=== PATIENT | female | born 1995 | race Caucasian/White ===

== ENCOUNTER 2018-10-16 17:34 | Emergency (ER) | payer MEDICAID ==
[~2018-10-16] VITALS: Ht 180.3 cm; Wt 200.7 kg
[2018-10-16 18:05] VITALS: BP 155/92; Ht 180.3 cm; Wt 200.7 kg
== END 2018-10-16 18:38 | disposition home or self-care (01) ==
LOC: ED 17:34
DX: J03.90 Acute tonsillitis, unspecified (principal); F41.9 Anxiety disorder, unspecified

== ENCOUNTER 2018-12-23 00:58 | Emergency (ER) | payer OTHER ==
[2018-12-23 01:06] VITALS: Ht 180.3 cm
[2018-12-23 01:57] LABS: BASOPHIL % 0.4 % (0-2); PLATELET COUNT 268 x10^3mcL (130-400); RED CELL DISTRIBUTION WIDTH 13.5 % (11.5-14.5)
[2018-12-23 02:06] LABS: CALCIUM 8.6 mg/dL (8.5-10.1); CARBON DIOXIDE 30.8 mmol/L (21-32); CHLORIDE SERUM 100 mmol/L (98-107); GFR1 > 60 mL/min; GLUCOSE SERUM 132 mg/dL (74-106); POTASSIUM SERUM 3.4 mmol/L (3.5-5.1); SODIUM SERUM 138 mmol/L (136-145)
[2018-12-23 02:11] LABS: ALBUMIN 3.8 g/dL (3.4-5.0); ALKALINE PHOSPHATASE 60 U/L (46-116); ALT/SGPT 65 U/L (14-59); AST/SGOT 28 U/L (15-37); BILIRUBIN TOTAL 0.65 mg/dL (0.20-1.00); TOTAL PROTEIN, SERUM 8.2 g/dL (6.4-8.2)
[2018-12-23 03:32] VITALS: BP 127/78
[2018-12-24] MEDS ORDERED: SPIRONOLACTONE100 MG PO (14:31)
[2018-12-24] MEDS ORDERED: CLONAZEPAM1 MG PO (14:32)
[2018-12-24] MEDS ORDERED: FLUOXETINE60 MG PO (14:33)
[2018-12-24] MEDS ORDERED: HYD50T PO (14:35)
== END 2018-12-23 03:25 | disposition home or self-care (01) ==
LOC: ED 00:58
PROVIDERS: Emergency Medicine
DX: N13.2 Hydronephrosis with renal and ureteral calculous obstruction (principal); F41.9 Anxiety disorder, unspecified; F32.9 Major depressive disorder, single episode, unspecified; E11.9 Type 2 diabetes mellitus without complications
CPT/HCPCS: J1885; J2405; J7030

== ENCOUNTER 2018-12-24 10:48 | Inpatient (IN) | payer OTHER ==
[~2018-12-24] VITALS: Ht 180.3 cm; Wt 190.5 kg
[2018-12-24 10:50] VITALS: Ht 180.3 cm; Wt 190.5 kg
--- NOTE | 2018-12-24 10:58 | NUR ---
PT AWAKE AND ALERT. PT BIBA FOR SOB AND HIGH FEVER. PER PARAMEDICS, PT'S LUNG SOUNDS WERE CLEAR ON SCENE BUT PT'S SPO2 WAS IN THE LOW 90S. PT WAS PLACED ON 2L VIA NC AND SPO2 WENT UP TO 97%. PT DENIES ANY C/P AT THIS TIME. PT SKIN IS HOT TO TOUCH. PT DOES NOT APPEAR TO BE IN RESPIRATORY DISTRESS. RESP E/U. PT ON FULL CM. PT IS TACHYCARDIC. PT HAS HX OF DM AND HTN. PT IS ALSO TRANSGENDERED MALE TO FEMALE BUT STILL HAS MALE GENITALS. CALL LIGHT WITHIN REACH. PT AWAITING MSE IN POSITION OF COMFORT.
--- NOTE | 2018-12-24 11:09 | NUR ---
PT PROVIDED URINAL FOR URINE SAMPLE COLLECTION
--- NOTE | 2018-12-24 11:29 | NUR ---
SEPSIS SHEET STARTED. PT QUALIFIES FOR SIRS AT THIS TIME. BOLUS OF NS INITIATED.
--- NOTE | 2018-12-24 11:31 | NUR ---
FAMILY AT BEDSIDE
[2018-12-24 11:36] LABS: PLATELET COUNT 215 x10^3mcL (130-400); RED CELL DISTRIBUTION WIDTH 13.4 % (11.5-14.5)
[2018-12-24 11:43] LABS: CALCIUM 8.5 mg/dL (8.5-10.1); CHLORIDE SERUM 96 mmol/L (98-107); CREATININE SERUM 0.9 mg/dL (0.6-1.0); GFR1 > 60 mL/min; GLUCOSE SERUM 160 mg/dL (74-106); POTASSIUM SERUM 3.3 mmol/L (3.5-5.1); SODIUM SERUM 131 mmol/L (136-145)
[2018-12-24 11:48] LABS: ALBUMIN 3.3 g/dL (3.4-5.0); ALKALINE PHOSPHATASE 57 U/L (46-116); ALT/SGPT 44 U/L (14-59); AST/SGOT 19 U/L (15-37); BILIRUBIN TOTAL 0.85 mg/dL (0.20-1.00); TOTAL PROTEIN, SERUM 7.6 g/dL (6.4-8.2)
--- NOTE | 2018-12-24 12:24 | NUR ---
LITER BOLUS INFUSED. BP 125/69, HR 134, R 28. SKINS WARM & DRY W/ IMMEDIATE CAP REFILL. PT PT ANXIETY, WANTING TO TAKE OWN KLONAZPEAM.
--- NOTE | 2018-12-24 12:35 | NUR ---
PT TOOK OWN KLONPIN 1 MG FOR ANXIETY & OWN MOTRIN 600 MG FOR HEADACHE W/ OK OF DR. SUAREZ.
[2018-12-24 12:54] LABS: BAND NEUTROPHIL 9 % (0-10); BASOPHIL 0 % (0-2); MONOCYTE 13 % (0-7); PLATELET MORPHOLOGY PLATELETS NORMAL; SEGMENTED NEUTROPHILS 71 % (37-75)
[2018-12-24 13:07] LABS: microscopic required? YES; urine erythrocyte 2+ (NEGATIVE)
--- NOTE | 2018-12-24 13:22 | NUR ---
ANTIBIOTIC INITIATED AT THIS TIME.
[2018-12-24] MEDS ORDERED: SPIRONOLACTONE100 MG PO (14:31)
[2018-12-24] MEDS ORDERED: CLONAZEPAM1 MG PO (14:32)
[2018-12-24] MEDS ORDERED: FLUOXETINE60 MG PO (14:33)
[2018-12-24] MEDS ORDERED: HYD50T PO (14:35)
--- NOTE | 2018-12-24 15:34 | NUR ---
RECEIVED PT FROM E/D [employer]IA [employer], ACCOMPANIED BY RN AND TRANSPORTER. PT A/A/O X 4, ANXIOUS R/T HOSPITAL STAY BUT COOPERATIVE TO CARE AT THIS TIME, HAS H/A PRESSURE 7/10 EXACERBATED BY MOVEMENT, RELIEVED BY REST AND MEDICATION. PT WITH DIZZINESS, HR 123, DENIES CHEST PAIN OR DISCOMFORT AT THIS TIME, ABLE TO AMBULATE WITH SLOW, STEADY GAIT; FALL RISK PROTOCOL IN PLACE. LUNGS CTAB, CHEST RISING EVENLY, 2LNC, 97%, NO ACUTE RESPIRATORY DISTRESS NOTED. MORBIDLY OBESE; ABD SOFT, DISTENDED, NORMOACTIVE BOWEL SOUNDS X 4 QUADS, LAST BM 12/24/18, FORMED. TRANS M2F, MALE GENITALIA INTACT; VOIDS FREELY, URINAL BY BEDSIDE, DENIES DYSURIA. ON BIG BOY BED. IV SITE LFA 20G, CDI. ORIENTED PT TO ROOM, BED CONTROLS, CALL LIGHT SYSTEM. SIDE RAILS UP X 2, BED IN LOW POSITION. WILL ENDORSE TO IVAN PARADA.
--- NOTE | 2018-12-24 15:40 | NUR ---
REPORT GIVEN BY ONELIA AT THIS TIME. PATIENT RESTING COMFORTABLY IN BED. NO APPARENT DISTRESS OR DISCOMFORT NOTED. BREATHING EVEN AND UNLABORED. NO RESPIRATORY DISTRESS NOTED. PATIENT ON 2L NC AND TOLERATING WELL. PATIENT DENIES CHEST PAIN AT THIS TIME BUT DOES COMPLAIN OF DIZZINESS. PATIENT IS TRANSGENDER M2F, MALE GENITALIA INTACT AND USES URINAL AT BEDSIDE. IV TO LEFT FOREARM PATENT AND INTACT. ALL QUESTIONS AND CONCERNS ADDRESSED. ALL NEEDS ATTENDED TO. ALL SAFETY PRECAUTIONS MAINTAINED. WILL CONTINUE TO MONITOR
[2018-12-24 16:10] VITALS: BP 115/53
--- NOTE | 2018-12-24 18:35 | NUR ---
PATIENT RESTING COMFORTABLY IN BED AT THIS TIME. NO APPARENT DISTRESS OR DISCOMFORT NOTED. 2L NC IN PLACE. PATIENT TOLERATING WELL. IV PATENT AND INTACT. ALL QUESTIONS AND CONCERNS ADDRESSED. SAFETY PRECAUTIONS MAINTAINED. ALL NEEDS ATTENDED TO. WILL ENDORSE ALL CARE TO CONSULTING SME NURSE
--- NOTE | 2018-12-24 18:45 | NUR ---
PAGED DR RODRIGEZ AT THIS TIME REGARDING PATIENT REQUEST FOR MEDICATION FOR DIARRHEA. AWAITING CALL BACK. WILL ENDORSE TO THEOLOGY TEACHER NURSE.
--- NOTE | 2018-12-24 19:09 | NUR ---
SPOKE TO DR RODRIGEZ AT THIS TIME. REPORTED TO DR RODRIGEZ PATIENT C/O DIARRHEA AT THIS TIME. PER DR RODRIGEZ COLLECT STOOL SAMPLE FOR C-DIFF. ORDERS NOTED AND CARRIED OUT.
--- NOTE | 2018-12-24 19:20 | NUR ---
REPORT RECIEVED FROM DAY SHIFT RN. PATIENT WAS SEEN AND IS RESTING COMFORTBALY IN BED. ON 2L NC. BREATHING EVEN AND UNLABORED. NO DISTRESS NOTED. DENIES CHEST PAIN. C/O HEADACHE, BUT STATES IT'S IMPROVING FROM EARLIER. C/O NAUSEA AND MILD DIZZINESS WELL. MED SURG PATIENT. IV TO THE LFA, 22G INFUSING WELL. PATENT AND INTACT. PATIENT IS ABLE TO MAKE NEEDS KNOWN. PATIENT STATES SHE STILL FEELS ANXIOUS, BUT NOT MUCH BEFORE. EDUCATED PATIENT THAT STOOL SAMPLE IS NEEDED FOR CDIFF CULTURE. PATIENT DENIES DYSURIA. COMFORT AND SAFETY MEASURES MAINTAINED. BED IS LOCKED AND IN THE LOWEST POSITION. SIDE RAILS UP X2. CALL LIGHT IS WITHIN REACH. WILL CONTINUE TO MONITOR.
--- NOTE | 2018-12-24 20:12 | NUR ---
PATTERN ASSEMBLER REPORTED TEMP IS 100F. COOLING MEASURES IMPLEMENTED TO FOREHEAD AND BILATERALLY AXILLA. WILL CONTINUE TO MONITOR AND REASSESS TEMP. NO DISTRESS NOTED. CALL LIGHT IS WITHIN REACH.
[2018-12-24 21:21] VITALS: BP 147/78
[2018-12-24 21:24] VITALS: BP 159/50
--- NOTE | 2018-12-24 21:30 | NUR ---
TEMP AT 99.7 AFTER COOLING MEASURES.
--- NOTE | 2018-12-24 23:24 | NUR ---
MANAGER FINE REPORTED IV IS LEAKING. IV CAME LOOSE. CATHETER INTACT. NEW IV INSERTED BY IVAN ROUSSEAU TO THE RFA, 22G. PATENT AND INTACT. NO REDNESS OR SWELLING NOTED. RESUMED LR INFUSING AND INFUSING WELL. PATENT AND INTACT. CALL LIGHT IS WITHIN REACH. PATIENT MADE COMFORTBALY IN BED. WILL CONTINUE TO MONITOR.
--- NOTE | 2018-12-25 01:11 | NUR ---
PATIENT IS HAVING TROUBLE SLEEPING AND IS REQUESTING SLEEPING PILL. PRN AMBIEN WAS ADMINISTERED PRESCRIBED. EDUCATED PATIENT TO BE CAREFUL IF SHE NEEDS TO GET UP. WILL CONTINUE TO MONITOR. CALL LIGHT IS WITHIN REACH. BREATHING EVEN. NO DISTRESS NOTED
--- NOTE | 2018-12-25 02:32 | NUR ---
ADVISOR [employer] FOUNDER REPORTED TEMP OF 103. PATIENT STATES THAT SHE FEELS LIKE SHE IS BURNING UP. PRN TYLENOL WAS ADMINISTERED PRESCRIBED. COOLING MEASURES IMPLEMENTED WELL ON FOREHEAD AND BILATERALLY AXILLAS. WILL CONTINUE TO MONITOR AND REASSESS TEMP.
--- NOTE | 2018-12-25 03:28 | NUR ---
TEMP 101 AFTER TYLENOL AND COOLING MEASURES. IMPLEMENTED COOLING MEASURES AGAIN AND WILL REASSESS. CALL LIGHT IS WITHIN REACH,
--- NOTE | 2018-12-25 04:30 | NUR ---
PATIENT'S TEMP IS NOW 98.6.
--- NOTE | 2018-12-25 05:20 | NUR ---
PATIENT SLEPT IN INTERVAL THROUGHOUT THE NIGHT. BREATHING EVEN ON 2L NC. NO ACUTE/SIGNIFICANT CHANGES NOTED. NO DISTRESS NOTED. NO C/O PAIN THROUGHOUT THE NIGHT. DENIES CHEST PAIN. IV TO THE RFA INFUSING LR WELL. PATENT AND INTACT. NO REDNESS OR SWELLING NOTED. EDUCATED PATIENT ON ALL MEDS. ALL NEEDS AND CONCERNS ADDRESSED. STOOL SAMPLE SENT TO LAB FOR C-DIFF CULTURE. COMFORT AND SAFETY MEASURES MAINTAINED. CALL LIGHT IS WITHIN REACH. WILL ENDORSE CARE TO DAY SHIFT RN.
[2018-12-25 05:43] VITALS: BP 94/51
[2018-12-25 06:32] LABS: PLATELET COUNT 189 x10^3mcL (130-400); RED CELL DISTRIBUTION WIDTH 13.8 % (11.5-14.5)
[2018-12-25 06:38] LABS: ALKALINE PHOSPHATASE 53 U/L (46-116); ALT/SGPT 30 U/L (14-59); AST/SGOT 15 U/L (15-37); BILIRUBIN TOTAL 0.8 mg/dL (0.20-1.00); CALCIUM 8.3 mg/dL (8.5-10.1); CARBON DIOXIDE 28.5 mmol/L (21-32); CHLORIDE SERUM 99 mmol/L (98-107); CREATININE SERUM 0.9 mg/dL (0.6-1.0); GFR1 > 60 mL/min; GLUCOSE SERUM 141 mg/dL (74-106); MAGNESIUM 1.6 mg/dL (1.8-2.4); PHOSPHOROUS 2.8 mg/dL (2.5-4.9); SODIUM SERUM 137 mmol/L (136-145); TOTAL PROTEIN, SERUM 7.1 g/dL (6.4-8.2)
[2018-12-25 06:49] LABS: ALBUMIN 2.7 g/dL (3.4-5.0); POTASSIUM SERUM 2.9 mmol/L (3.5-5.1)
--- NOTE | 2018-12-25 07:30 | NUR ---
A+OX4, NO RESPIRATORY DSITRESS NOTED, MEDSURG, PULSES MODERATE AND EQUAL ADINA, NO EDEMA NOTED, LUNG SOUNDS CTA, BOWEL SOUNDS ACTIVE, VOIDING FREELY, GENERALIZED WEAKNESS, SKIN INTACT, IV IN RFA WITH LR @ 80 ML/HR, SITE WNL, WBC 21.5, K 2.9, CA 8.3, MG 1.6.
[2018-12-25 09:22] VITALS: BP 157/100
--- NOTE | 2018-12-25 09:29 | NUR ---
PT COMPLAINING OF NAUSEA AND BACK PAIN, REQUESTING NORCO PO. ZOFRAN IVP AND NORCO PO GIVEN. NO RESPRIATORY DISTRESS NOTED. CALL LIGHT WITHIN REACH.
[2018-12-25 11:34] LABS: BAND NEUTROPHIL 5 % (0-10); BASOPHIL 0 % (0-2); MONOCYTE 10 % (0-7); SEGMENTED NEUTROPHILS 76 % (37-75)
[2018-12-25 11:35] LABS: PLATELET MORPHOLOGY PLATELETS DECREASED; rbc morphology (normal/abnorm) ABNORMAL (NORMAL)
--- NOTE | 2018-12-25 11:50 | NUR ---
PT RESTING IN BED, NO RESPIRATORY DSITRESS NOTED, COMPLAINING OF VÁZQUEZ, TYLENOL PO GIVEN. ASSISTED PT TO CALL MOTHER VIA TELEPHONE. CALL LIGHT WITHIN REACH.
--- NOTE | 2018-12-25 13:20 | NUR ---
PT RESTING IN BED, NO RESPIRATORY DISTRESS NOTED, CALL LIGHT WITHIN REACH.
--- NOTE | 2018-12-25 15:15 | NUR ---
PT COMPLAINING OF BACK PAIN AND VÁZQUEZ, REQUESTING NORCO PO, NORCO PO GIVEN, NO RESPIRATORY DSITRESS NOTED, CALL LIGHT WITHIN REACH.
[2018-12-25 16:28] VITALS: BP 122/67
--- NOTE | 2018-12-25 16:51 | NUR ---
DR FONTENOT TELEPHONE ORDERED TO ADMINISTER ADDITIONAL KLOR CON 40 MEQ PO PRN NOW.
--- NOTE | 2018-12-25 17:47 | NUR ---
PT COMPLAINING THAT SHE FEELS HOT, TEMP 100.7, TYLENOL PO GIVEN, COOLING MEASURES IN PLACE INCLUDING AC ON HIGH AND ICE ICE PACK ON FOREHEAD. MOTHER AT BEDSIDE. NO RESPRIATORY DSITRESS NOTED, CALL LIGHT WITHIN REACH.
--- NOTE | 2018-12-25 18:28 | NUR ---
TEMP RECHECKED AFTER TYLENOL PO AND COOLING MEASURES: 99.0. NO RESPRIATORY DSITRESS NOTED, CALL LIGHT WITHIN REACH, MOTHER AT BEDSIDE.
--- NOTE | 2018-12-25 19:12 | NUR ---
ENDORSED CARE TO ROBYN LOVE.
--- NOTE | 2018-12-25 19:38 | NUR ---
RECEIVED PT FROM DAY SHIFT RN. AAOX4 DENIES HEADACHE OR DIZZINESS. PT DENIES ANY CHEST PAIN. LUNG SOUNDS CTA ON RA AT THIS TIME. IV RFA PATENT AND INFUSING WELL. PT AMBULATORY. SKIN INTACT. FAMILY AT BEDSIDE. NO SIGNS OF ACUTE DISTRESS NOTED. CALL BUTTON WITHIN REACH. WILL CONTINUE TO MONITOR.
--- NOTE | 2018-12-25 20:42 | NUR ---
PT REPORTED HAVING PAIN, MEDICATED PER EMAR. WILL CONTINUE TO MONITOR.
[2018-12-25 21:14] VITALS: BP 130/62
--- NOTE | 2018-12-26 00:07 | NUR ---
PT RESTING, BREATHING EVEN AND UNLABORED WITH NO SIGNS OF DISTRESS NOTED. IV INFUSING WELL. WILL MONITOR.
--- NOTE | 2018-12-26 01:08 | NUR ---
PT REPORTED HAVING BACK PAIN, MEDICATED PER EMAR. WILL CONTINUE TO MONITOR.
--- NOTE | 2018-12-26 02:01 | NUR ---
PT RESTING, BREATHING EVEN AND UNLABORED, NO SOB NOTED. IV INFUSING WELL. NO SIGNS OF DISTRESS NOTED. WILL CONTINUE TO MONITOR.
--- NOTE | 2018-12-26 04:02 | NUR ---
ROUNDS MADE. PT RESTING, BREATHING EVEN AND UNLABORED, NO SOB NOTED. IV INFUSING WELL. NO SIGNS OF DISTRESS NOTED. WILL CONTINUE TO MONITOR.
[2018-12-26 05:52] VITALS: BP 99/48
--- NOTE | 2018-12-26 06:06 | NUR ---
PT SLEPT ON AND OFF THROUGHOUT THE NIGHT WITH NO SIGNS OF DISTRESS. BREATHING EVEN AND UNLABORED PT ON RA AND PLACED ON NC 2L/MIN NEEDED TO KEEP 02SAT ABOVE 94%. IV PATENT AND INFUSING WELL. PT REPORTED HAVING PAIN THROUGHOUT THE NIGHT, MEDICATED PER EMAR WITH RELIEF. PT USES URINAL AT BEDSIDE. CALL BUTTON WITHIN REACH. SAFETY PRECAUTIONS IN PLACE. WILL CONTINUE TO MONITOR AND ENDORSE CARE TO DAY SHIFT RN.
--- NOTE | 2018-12-26 07:15 | NUR ---
PT REPORTED HAVING A HEADACHE, MEDICATED PER EMAR. WILL MONITOR.
--- NOTE | 2018-12-26 07:30 | NUR ---
A+OX4, NO RESPIRATORY DISTRESS NOTED, COMPLAINING OF VÁZQUEZ, TYLENOL GIVEN BY PREVIOUS SHIFT, MEDSURG, PULSES MODERATE AND EQUAL ADINA, NO EDEMA NOTED, LUNG SOUNDS CTA, TOLERATING RA, 2L NC, BOWEL SOUNDS ACTIVE, VOIDING FREELY, AMBULATORY, SKIN INTACT, IV IN RFA WITH LR @ 80 ML/HR, SITE WNL.
--- NOTE | 2018-12-26 07:31 | NUR ---
PT RESTING, BREATHING EVEN AND UNLABORED NO SIGNS OF DISTRESS NOTED. IV INFUSIGN WELL. ENDORSED CARE TO DAY SHIFT RN.
[2018-12-26 09:21] LABS: ALBUMIN 2.6 g/dL (3.4-5.0); ALKALINE PHOSPHATASE 50 U/L (46-116); ALT/SGPT 28 U/L (14-59); AST/SGOT 14 U/L (15-37); BASOPHIL % 0.2 % (0-2); BILIRUBIN TOTAL 0.57 mg/dL (0.20-1.00); CALCIUM 8.3 mg/dL (8.5-10.1); CARBON DIOXIDE 31.1 mmol/L (21-32); CHLORIDE SERUM 97 mmol/L (98-107); CREATININE SERUM 0.8 mg/dL (0.6-1.0); GFR1 > 60 mL/min; GLUCOSE SERUM 137 mg/dL (74-106); PLATELET COUNT 198 x10^3mcL (130-400); POTASSIUM SERUM 3.5 mmol/L (3.5-5.1); RED CELL DISTRIBUTION WIDTH 13.6 % (11.5-14.5); SODIUM SERUM 134 mmol/L (136-145); TOTAL PROTEIN, SERUM 7.3 g/dL (6.4-8.2)
[2018-12-26 09:24] VITALS: BP 154/93
--- NOTE | 2018-12-26 10:34 | NUR ---
PT CONT TO COMPLAIN OF CONSTANT VÁZQUEZ AND PRESSURE IN HEAD. DR FONTENOT NOTIFIED AND STATED OKAY FOR PT TO HAVE OXYCODONE FOR VÁZQUEZ. OXYCODONE PO GIVEN. NO RESPIERATORY DISTRESS NOTED. CALL LIGHT WITHIN REACH.
--- NOTE | 2018-12-26 11:54 | NUR ---
PT SITTING IN CHAIR AT BEDSIDE, NO RESPIRATORY DISTRESS NOTED, STATES OXYCODONE RELIEVED VÁZQUEZ MINIMALLY, FRIEND AT BEDSIDE, CALL LIGHT WITHIN REACH.
--- NOTE | 2018-12-26 13:45 | NUR ---
PT RESTING IN BED, NO RESPIRATORY DSITRESS NOTED, APPEARS TO BE SLEEPING, CALL LIGHT WITHIN REACH.
--- NOTE | 2018-12-26 15:18 | NUR ---
PT RESTING IN BED, NO RESPIRATORY DSITRESS NOTED, APPEARS TO BE SLEEPING, CALL LIGHT WITHIN REACH.
[2018-12-26 16:56] VITALS: BP 158/88
[2018-12-26 16:57] VITALS: BP 134/38
--- NOTE | 2018-12-26 17:02 | NUR ---
PT RESTING IN BED, COMPLAINING OF BACK PAIN AND VÁZQUEZ, REQUESTING NORCO PO, NORCO PO GIVEN, NO RESPRIATORY DSITRESS NOTED, CALL LIGHT WITHIN REACH.
--- NOTE | 2018-12-26 18:26 | NUR ---
PT STATES: "IM BURNING UP!" PT TEMP: 102.3. TYLENOL PO GIVEN, AC ON HIGH, AND ICE PACKS PLACED ON FOREHEAD, AND BOTH ARM PITS. WILL CONT TO MONITOR.
--- NOTE | 2018-12-26 19:03 | NUR ---
TEMP 100.8 AFTER TYLENOL PO AND COOLING MEASURES. FRESH ICE PACKS PLACED ON FOREHEAD AND ARM PITS. NO RESPRIATORY DSITRESS NOTED, CALL LIGHT WITHIN REACH.
--- NOTE | 2018-12-26 19:31 | NUR ---
ENDORSED CARE TO CHALO ARANA
--- NOTE | 2018-12-26 20:00 | NUR ---
PT IS AWAKE AND ORIENTED X4. PT REPORTS VÁZQUEZ AT THIS TIME BUT STATES IT IS TOLERABLE. PT IS CALM AND COOPERATIVE WITH NURSING CARE. PT DENIES CP OR PRESSURE. PT HAS PALPABLE PULSES BILAT ALL EXTREMITIES. PT HAS CLEAR LUNG SOUNDS. PT DENIES SOB. RESPIRATIONS EVEN AND UNLABORED ON ROOM AIR. PT HAS NC NEEDED. PT HAS ACTIVE BOWEL SOUNDS. PT REPORTED PREVIOUS EPISODES OF DIARRHEA BUT NON AT THIS TIME. PT ABD ROUND, SOFT, AND NONTENDER. PT DENIES ABD PAIN AND N/V AT THIS TIME. PT VOIDS FREELY ON OWN AND UTILIZES URINAL. PT AMBULATORY WITH STEADY GAIT. PT SKIN CDI. IV FLUIDS LR RUNNING AT 80 ML/HR TO RFA. IV PATENT WITH NO SIGNS OF INFILTRATION. PT STATES VÁZUQEZ IS TOLERABLE. NO SIGNS OF DISTRESS. [facility]
[2018-12-26 20:57] VITALS: BP 112/73
--- NOTE | 2018-12-26 23:21 | NUR ---
PT REMAINS IN BED AT THIS TIME RESTING WITH EYES CLOSED.PT FAMILY AT BEDSIDE. NO SIGNS OF DISTRESS. WILL CONTINEU TO MONITOR.
--- NOTE | 2018-12-27 04:28 | NUR ---
PT REMAINS IN BED AT THIS TIME RESTING. PT REMAINS AFEBRILE. NO SIGNS OF DISTRESS. WILL CONTINUE TO MONITOR.
[2018-12-27 06:01] VITALS: BP 141/87
[2018-12-27 06:25] LABS: BASOPHIL % 0.3 % (0-2); PLATELET COUNT 244 x10^3mcL (130-400); RED CELL DISTRIBUTION WIDTH 13.5 % (11.5-14.5)
[2018-12-27 06:47] LABS: ALBUMIN 2.7 g/dL (3.4-5.0); ALKALINE PHOSPHATASE 62 U/L (46-116); ALT/SGPT 26 U/L (14-59); AST/SGOT 14 U/L (15-37); BILIRUBIN TOTAL 0.5 mg/dL (0.20-1.00); CALCIUM 8.5 mg/dL (8.5-10.1); CARBON DIOXIDE 31.7 mmol/L (21-32); CHLORIDE SERUM 97 mmol/L (98-107); CREATININE SERUM 0.8 mg/dL (0.6-1.0); GFR1 > 60 mL/min; GLUCOSE SERUM 113 mg/dL (74-106); MAGNESIUM 2.1 mg/dL (1.8-2.4); POTASSIUM SERUM 3.1 mmol/L (3.5-5.1); SODIUM SERUM 136 mmol/L (136-145)
--- NOTE | 2018-12-27 07:11 | NUR ---
PT IS CALM AND COOPERATIVE WITH NURSING CARE. PT C/O ANXIETY AT TIMES, PT CALLED MOTHER TO COME STAY WITH PT TO CALM PT DOWN AND WAS SUCCESSFUL. PT C/O BACK AND HEAD PAIN AND RECEIVED PRN PAIN MEDICATIONS AND WAS MANAGED WELL. COOLING MEASURES REMAINS IN PLACE, NO FEVER NOTED. PT SLEPT THROUGHOUT THE EVENING. ALL PT NEEDS MET. NO SIGNS OF DISTRESS. WILL ENDORSE TO DAY NURSE.
--- NOTE | 2018-12-27 07:58 | NUR ---
SPOKE WITH DR FONTENOT TO NOTIFY TA PATIENT WOULD LIKE TO REVIEW CT RESULTS AND TO NOTIFY OF K+ 3.1
[2018-12-27 09:38] VITALS: BP 133/76
[2018-12-27 13:17] VITALS: BP 133/76
--- NOTE | 2018-12-27 14:00 | NUR ---
PATIENT STABLE FOR DISCHRGE PER MD. DISCHARGE INSTRUCTIONS AND SUMMARY DISCUSSED. PT VERBALIZED UNDERSTANDING AND AGREES TO FOLLOW UP WITH PCP. AWAITING TRANSPORTATION.
--- NOTE | 2018-12-27 14:40 | NUR ---
TRANSPORTATION IS HERE. IV REMOVED AND IV POLE CLEARED. ID BANDS CUT. PT ESCORTED TO DIASCHARGE OFFICE VIA WHEELCHAIR.
== END 2018-12-27 14:40 | disposition home or self-care (01) | DRG 720 ==
LOC: ED 10:48 → MU 14:47
PROVIDERS: Emergency Medicine; ADMIT Internal Medicine Pulmonary Disease
DX: A41.9 Sepsis, unspecified organism (principal); E66.01 Morbid (severe) obesity due to excess calories; E11.9 Type 2 diabetes mellitus without complications; F32.9 Major depressive disorder, single episode, unspecified; F41.9 Anxiety disorder, unspecified; E87.6 Hypokalemia; Z68.43 Body mass index [BMI] 50.0-59.9, adult; N13.6 Pyonephrosis
CPT/HCPCS: 87804; J0696; J1644; J1956; J2405; J2543; J3475; J7030; J7120; Q0092

== ENCOUNTER 2019-02-12 22:33 | Emergency (ER) | payer OTHER ==
[~2019-02-12] VITALS: Ht 180.3 cm; Wt 211.4 kg
[~2019-02-12 22:33] MED LIST: CLONAZEPAM1 MG PO; FLUOXETINE60 MG PO; HYD50T PO; SPIRONOLACTONE100 MG PO
[2019-02-12 22:37] VITALS: Ht 180.3 cm; Wt 211.4 kg
[2019-02-13 00:39] LABS: BASOPHIL % 0.6 % (0-2); PLATELET COUNT 306 x10^3mcL (130-400); RED CELL DISTRIBUTION WIDTH 13.6 % (11.5-14.5)
[2019-02-13 00:41] LABS: UA SPECIFIC GRAVITY >=1.030 (1.005-1.035); microscopic required? YES; urine erythrocyte NEGATIVE (NEGATIVE)
[2019-02-13 00:47] LABS: CALCIUM 9.2 mg/dL (8.5-10.1); CARBON DIOXIDE 31.6 mmol/L (21-32); CHLORIDE SERUM 101 mmol/L (98-107); CREATININE SERUM 0.9 mg/dL (0.6-1.0); GFR1 > 60 mL/min; GLUCOSE SERUM 149 mg/dL (74-106); POTASSIUM SERUM 3.8 mmol/L (3.5-5.1); SODIUM SERUM 139 mmol/L (136-145)
[2019-02-13 00:52] LABS: ALBUMIN 3.4 g/dL (3.4-5.0); ALKALINE PHOSPHATASE 69 U/L (46-116); ALT/SGPT 49 U/L (14-59); AST/SGOT 12 U/L (15-37); BILIRUBIN TOTAL 0.3 mg/dL (0.20-1.00)
[2019-02-13 01:50] VITALS: BP 144/92
== END 2019-02-13 01:50 | disposition home or self-care (01) ==
LOC: ED 22:33
PROVIDERS: Emergency Medicine
DX: K60.2 Anal fissure, unspecified (principal); E11.9 Type 2 diabetes mellitus without complications; F41.9 Anxiety disorder, unspecified; F32.9 Major depressive disorder, single episode, unspecified; Z87.442 Personal history of urinary calculi
CPT/HCPCS: 36415

== ENCOUNTER 2019-04-11 04:40 | Emergency (ER) | payer OTHER ==
[~2019-04-11] VITALS: Ht 180.3 cm; Wt 212.3 kg
[2019-04-11 04:45] VITALS: Ht 180.3 cm; Wt 212.3 kg
[2019-04-11 06:02] VITALS: BP 166/107
== END 2019-04-11 06:02 | disposition home or self-care (01) ==
LOC: ED 04:40
DX: H66.91 Otitis media, unspecified, right ear (principal); H60.91 Unspecified otitis externa, right ear; I10 Essential (primary) hypertension; F41.9 Anxiety disorder, unspecified; F32.9 Major depressive disorder, single episode, unspecified; Z87.442 Personal history of urinary calculi
CPT/HCPCS: J1885

== ENCOUNTER 2020-03-12 11:01 | Emergency (ER) | payer OTHER ==
[~2020-03-12] VITALS: Ht 154.9 cm; Wt 182.3 kg
[2020-03-12 11:12] VITALS: Ht 154.9 cm; Wt 182.3 kg
[2020-03-12 11:52] VITALS: BP 146/69
== END 2020-03-12 11:52 | disposition home or self-care (01) ==
LOC: ED 11:01
DX: J02.9 Acute pharyngitis, unspecified (principal); I10 Essential (primary) hypertension; E11.9 Type 2 diabetes mellitus without complications; Z20.828 Contact with and (suspected) exposure to other viral communicable diseases; Z87.442 Personal history of urinary calculi
CPT/HCPCS: U0003-CS